=== PATIENT | female | born 1965 | race African-American/Black ===

== ENCOUNTER 2017-02-06 10:33 | Emergency (ER) | payer OTHER ==
[~2017-02-06] VITALS: Ht 170.2 cm; Wt 94.5 kg
[~2017-02-06 10:33] MED LIST: BENZ100 PO; CYCL1TAB29 PO; IBUP800T23 PO; LORT5TAB PO; LORTA5 PO; NAPR500 PO; PRIN5TAB PO; Z.0.NO CURRENT MEDS; ZOFR4TAB3 SL
[2017-02-06 10:36] VITALS: BP 149/80; PULSE 106; RESP 16; TEMP 98.6; O2SAT 97
[2017-02-06 10:42] VITALS: PULSE 98; O2SAT 96
--- NOTE | 2017-02-06 11:04 | PD ---
HPI Chief Complaint: Pain: Acute or Chronic Time Seen by Provider: 11:04 Travel History International Travel<30 days: No Contact w/Intl Traveler<30days: No Traveled to known affect area: No History of Present Illness HPI 51-year-old female presents to the emergency Department with complaint of pain in her right buttocks 2 months. Denies injury. Pain radiates down the back of her right leg. Denies fever, chills, nausea, vomiting. Denies paresthesias , loss of sensation, decreased range of motion, decreased strength to bilateral lower extremities. Denies encopresis, incontinence, saddle anesthesias. Denies IV drug use. Denies cancer. Denies dysuria or change in stool. Denies change in gait. Has taken multiple [id number] medications with no relief of symptoms. Has follow-up with primary care provider on February 21. No known allergies. History of hypertension. PFSH Past Medical History Cancer: No Cardiovascular Problems: Yes (htn) Endocrine: No Genitourinary: No Hepatitis: No Hiatal Hernia: No Hypertension: Yes Immune Disorder: No Musculoskeletal: No Psychiatric: No Reproductive: No Respiratory: No Past Surgical History Abdominal Surgery: No Body Medical Devices: NONE Cardiac Surgery: No Ear Surgery: No Endocrine Surgery: No Eye Surgery: No Genitourinary Surgery: No Gynecologic Surgery: Yes (C SECTIONS,TOTAL HYSTERECTOMY) Hysterectomy: Yes Thoracic Surgery: No Social History Alcohol Use: No Tobacco Use: No Substance Use: No Allergies-Medications (Allergen,Severity, Reaction): Coded Allergies: No Known Allergies (Unverified , 02/06/17) Reported Meds & Prescriptions Reported Meds & Active Scripts Active Ibuprofen 800 Mg Tab 800 Mg PO Q6HR PRN Robaxin (Methocarbamol) 500 Mg Tab 500 Mg PO QID PRN Flexeril (Cyclobenzaprine HCl) 10 Mg Tab 10 Mg PO TID PRN 10 Days Ibuprofen 800 Mg Tab 800 Mg PO TID PRN 10 Days Reported Prinivil (Lisinopril) 5 Mg Tab 5 Mg PO DAILY Review of Systems Except as stated in HPI: all other systems reviewed are Neg Physical Exam Narrative GENERAL: Well-nourished, well-developed female patient, in no acute distress; afebrile, nontoxic-appearing SKIN: Warm and dry. HEAD: Atraumatic. Normocephalic. EYES: Pupils equal and round. No scleral icterus. No injection or drainage. ENT: Mucosa pink and moist. Airway patent. NECK: Trachea midline. CARDIOVASCULAR: Regular rate. RESPIRATORY: No accessory muscle use. GASTROINTESTINAL: Rounded. MUSCULOSKELETAL: Bilateral lower extremities supple and non-tense with 2+ pedal pulses and sensory intact; with full range of motion and 5/5 strength. 2 + DTRs bilaterally. Active dorsiflexion and extension of bilateral feet. Bilateral straight leg raise is negative for low back pain. Ambulatory with normal gait. Sitting up in bed at 90. No obvious deformities. No clubbing. No cyanosis. No edema. BACK: No midline point tenderness on palpation of the lumbar spine. Tenderness on palpation of right iliosacral area. No obvious deformities. NEUROLOGICAL: Awake and alert. Oriented 3. No obvious cranial nerve deficits. Motor grossly within normal limits. Normal speech. Moves all extremities. 5/5 strength to all extremities. Sensory intact. PSYCHIATRIC: Appropriate mood and affect; insight and judgment normal. Data Data Last Documented VS Vital Signs Date Time Temp Pulse Resp B/P Pulse Ox O2 Delivery O2 Flow Rate FiO2 02/06/17 10:42 98 96 02/06/17 10:36 98.6 16 149/80 Orders Ibuprofen (Motrin) (02/06/17 11:15) Methocarbamol (Robaxin) (02/06/17 11:15) [facility] Medical Decision Making Medical Screen Exam Complete: Yes Emergency Medical Condition: Yes Medical Record Reviewed: Yes Differential Diagnosis Sciatica, lumbar radiculopathy, arthritis, low back pain Narrative Course 51-year-old female physical exam and history of present illness consistent with right-sided sciatica. No midline point tenderness on palpation of the lumbar spine. Denies IV drug use, cancer. Denies fever, chills. Patient is afebrile and nontoxic-appearing. She is ambulatory with normal gait in the room. She's been experiencing this pain for 2 months and denies injury. Ibuprofen and Robaxin administered in the ER. Ibuprofen, Robaxin, Deltasone prescribed for home. Patient has follow-up appointment with primary care provider on February 21. Patient verbalizes understanding and agreement with treatment plan. Patient is medically cleared and stable for discharge. Discussed reasons to return to the emergency department. Instructed patient to follow up with primary care provider. Patient agrees with treatment plan. The patients vital signs are stable and the patient is stable for outpatient follow-up and treatment. Patient discharged home, stable and in no acute distress. Diagnosis Primary Impression: Right-sided low back pain with sciatica Qualified Code: M54.41 - Right-sided low back pain with right-sided sciatica, unspecified chronicity Referrals: Primary Care Physician Patient Instructions: General Instructions, Sciatica (ED) Departure Forms: Tests/Procedures, Work Release Additional Instructions: Tylenol or ibuprofen as directed and as needed to reduce pain Robaxin as prescribed for muscle spasms Get adequate rest Ice and/or heating pad to affected area to reduce pain Avoid aggravating activity; increase activity as tolerated Follow-up with primary care provider Return to the emergency department immediately with worsening symptoms Med/Other Pt SpecificInfo: Prescription(s) given Scripts Prednisone (Deltasone)20 Mg Tab40 Mg PO DAILY 5 Days Ref 0 Prov:Asia Cleveland 02/06/17 Ibuprofen 800 Mg [id number] Mg PO Q6HR PRN (PAIN) #30 TAB Ref 0 Prov:Asia Cleveland 02/06/17 Methocarbamol (Robaxin)500 Mg [id number] Mg PO QID PRN (MUSCLE SPASM) #30 TAB Ref 0 Prov:Asia Cleveland 02/06/17 Disposition: 01 DISCHARGE HOME Condition: Stable Asia Cleveland Feb 06, 2017 11:04
[2017-02-06] MEDS ORDERED: ROBA500T PO (11:06)
[2017-02-06] MEDS ORDERED: IBUP800T23 PO (11:06)
[2017-02-06] MEDS ORDERED: PRED-503 PO (11:09)
[2017-02-06] MEDS ORDERED: METHOCARBAMOL 500 MG TAB PO ONE (11:15)
[2017-02-06] MEDS ORDERED: IBUPROFEN 800 MG TAB PO ONE (11:15)
== END 2017-02-06 11:10 | disposition home or self-care (01) ==
LOC: NEPK 10:33
DX: M54.41 Lumbago with sciatica, right side (principal)
CPT/HCPCS: 99282

== ENCOUNTER 2017-03-19 09:58 | Emergency (ER) | payer OTHER ==
[~2017-03-19] VITALS: Ht 170.2 cm; Wt 95.0 kg
[~2017-03-19 09:58] MED LIST changes: +PRED-503 PO; +ROBA500T PO
[2017-03-19 10:00] VITALS: BP 135/77; PULSE 72; RESP 20; TEMP 98.7; O2SAT 96
[2017-03-19] MEDS ORDERED: LISI-519 PO (10:15)
[2017-03-19] MEDS ORDERED: ROBA500T PO (10:41)
--- NOTE | 2017-03-19 10:42 | PD ---
HPI Chief Complaint: Musculoskeletal Complaint Time Seen by Provider: 10:40 Travel History International Travel<30 days: No Contact w/Intl Traveler<30days: No Traveled to known affect area: No History of Present Illness HPI 52-year-old female presents to the emergency Department with complaint of right- sided low back pain that radiates down her right leg for 3 months now. She was seen here on February 06 for the same complaint and also followed up with her primary care provider who also told her it was sciatica. She denies new or recent injury. Has been taking [id number] medications and has taken past prescriptions as prescribed with minimal relief. Says the muscle relaxer did help her pain. She denies encopresis, incontinence, saddle anesthesias. Denies any drug use or cancer. Denies fever, vomiting. Denies urinary symptoms. Denies paresthesias, loss of sensation, decreased range of motion, decreased strength to bilateral lower extremities. Is ambulatory with a normal gait. Very care provider is Dr. Quintero. Has no medical complaints. No known allergies. No other modifying factors or associated signs and symptoms. PFSH Past Medical History Cancer: No Cardiovascular Problems: Yes (htn) Diminished Hearing: No Endocrine: No Genitourinary: No Hepatitis: No Hiatal Hernia: No Hypertension: Yes Immune Disorder: No Musculoskeletal: No Psychiatric: No Reproductive: No Respiratory: No Tetanus Vaccination: Unknown Influenza Vaccination: Yes ?: Not Past Surgical History Abdominal Surgery: No Body Medical Devices: NONE Cardiac Surgery: No Section: Yes (x3) Cholecystectomy: Yes Ear Surgery: No Endocrine Surgery: No Eye Surgery: No Genitourinary Surgery: No Gynecologic Surgery: Yes (C SECTIONS,TOTAL HYSTERECTOMY) Hysterectomy: Yes Thoracic Surgery: No Social History Alcohol Use: No Tobacco Use: Yes (1/2 ppd) Substance Use: No Allergies-Medications (Allergen,Severity, Reaction): Coded Allergies: No Known Allergies (Unverified , 02/06/17) Reported Meds & Prescriptions Reported Meds & Active Scripts Active Robaxin (Methocarbamol) 500 Mg Tab 500 Mg PO QID PRN Reported Lisinopril 5 Mg Tab 5 Mg PO DAILY Review of Systems Except as stated in HPI: all other systems reviewed are Neg Physical Exam Narrative GENERAL: Well-nourished, well-developed female patient, in no acute distress; afebrile, nontoxic-appearing SKIN: Warm and dry. HEAD: Atraumatic. Normocephalic. EYES: Pupils equal and round. No scleral icterus. No injection or drainage. ENT: Mucosa pink and moist. Airway patent. NECK: Trachea midline. CARDIOVASCULAR: Regular rate. RESPIRATORY: No accessory muscle use. GASTROINTESTINAL: Rounded. MUSCULOSKELETAL: Bilateral lower extremities supple and non-tense with 2+ pedal pulses and sensory intact; with full range of motion and 5/5 strength. 2 + DTRs bilaterally. Active dorsiflexion and extension of bilateral feet. Bilateral straight leg raise is negative for low back pain. Ambulatory in room with normal gait. Sitting up in bed at 90. No obvious deformities. No clubbing. No cyanosis. No edema. BACK: No midline point tenderness on palpation of the lumbar spine. Tenderness on palpation of right lumbar iliosacral/upper buttocks area. No obvious deformities. NEUROLOGICAL: Awake and alert. Oriented 3. No obvious cranial nerve deficits. Motor grossly within normal limits. Normal speech. Moves all extremities. 5/5 strength to all extremities. Sensory intact. PSYCHIATRIC: Appropriate mood and affect; insight and judgment normal. Data Data Last Documented VS Vital Signs Date Time Temp Pulse Resp B/P Pulse Ox O2 Delivery O2 Flow Rate FiO2 03/19/17 10:00 98.7 72 20 135/77 96 Room Air Orders Methocarbamol (Robaxin) (03/19/17 10:45) MDM Medical Decision Making Medical Screen Exam Complete: Yes Emergency Medical Condition: Yes Medical Record Reviewed: Yes Differential Diagnosis Sciatica, low back pain, low back strain Narrative Course 52-year-old female with right-sided low back pain with sciatica. I saw this patient on February 06 for the same complaint. She has followed up with her primary care provider, Dr. Quintero, since she was seen and he also told her sciatica. Patient states that she did get some relief with muscle relaxers that I prescribed previously. I will prescribe Robaxin for home. Patient denies encopresis, incontinence, saddle anesthesias. Denies IV drug use or cancer. Denies fever, vomiting. Patient is afebrile and nontoxic-appearing. Robaxin administered in the ER. Robaxin prescribed for home. Patient verbalizes understanding and agreement with treatment plan. Patient is medically cleared and stable for discharge. Discussed reasons to return to the emergency department. Instructed patient to follow up with primary care provider. Patient agrees with treatment plan. The patients vital signs are stable and the patient is stable for outpatient follow-up and treatment. Patient discharged home, stable and in no acute distress. Diagnosis Primary Impression: Right-sided low back pain with sciatica Qualified Code: M54.41 - Right-sided low back pain with right-sided sciatica, unspecified chronicity Referrals: Primary Care Physician Patient Instructions: General Instructions, Sciatica (ED) Departure Forms: Tests/Procedures, Work Release Enter return to work date: March 20, 2017 Additional Instructions: Tylenol or ibuprofen as directed and as needed for pain Robaxin as prescribed and as needed for muscle spasms Heating pad and/or ice to affected area to reduce pain Avoid aggravating activities; increase activity as tolerated Follow-up with primary care provider Return to emergency department immediately with worsening of symptoms Med/Other Pt SpecificInfo: Prescription(s) given Scripts Methocarbamol (Robaxin)500 Mg [id number] Mg PO QID PRN (MUSCLE SPASM) #30 TAB Ref 0 Prov:Asia Cleveland 03/19/17 Disposition: 01 DISCHARGE HOME Condition: Stable Asia Cleveland March 19, 2017 10:42
[2017-03-19] MEDS ORDERED: METHOCARBAMOL 500 MG TAB PO ONE (10:45)
== END 2017-03-19 10:59 | disposition home or self-care (01) ==
LOC: NEPK 09:58
DX: M54.41 Lumbago with sciatica, right side (principal)
CPT/HCPCS: 99283